=== PATIENT | female | born 1990 | race Caucasian/White ===

== ENCOUNTER 2024-01-19 04:51 | Emergency (ER) | payer SELFPAY ==
[~2024-01-19] VITALS: Ht 170.2 cm; Wt 82.1 kg
[2024-01-19 05:13] VITALS: BP 122/74; PULSE 60; RESP 16; TEMP 98.6; O2SAT 99
[2024-01-19] MEDS: ONDANSETRON 4 MG/2 ML VIAL IVP ONE (05:20)
[2024-01-19] MEDS: diphenhydrAMINE 50 MG/ML VIAL IVP ONE (05:25)
[2024-01-19] MEDS: METOCLOPRAMIDE 10 MG/2 ML INJ VIAL IVP ONE (05:28)
[2024-01-19 05:30] LABS: BILIRUBIN,URINE NEGATIVE (NEGATIVE); BLOOD, URINE TRACE-I (NEGATIVE); COLOR,URINE YELLOW (YELLOW); LEUKOCYTE ESTERASE ,URINE NEGATIVE (NEGATIVE); NITRITE, URINE NEGATIVE (NEGATIVE); PROTEIN,URINE TRACE (NEGATIVE); UGLUCOSE NEGATIVE (NEGATIVE); UROBILINOGEN,URINE 0.2 EU/dL (0.2 - 1)
[2024-01-19 05:31] LABS: APPEARANCE,URINE SLIGHTLY HAZY (CLEAR)
[2024-01-19] MEDS: NACL 0.9% 1,000 ML IV SCH (05:32)
[2024-01-19 05:34] LABS: BACTERIA,URINE 1+ /HPF (None Seen); MUCUS,URINE None Seen /LPF (None Seen); RBC,URINE 0-5 /HPF (0-5); SQUAMOUS EPITHELIAL CELL,UR 0-3 (FEW) /LPF (0-3 (FEW)); WBC,URINE 0-5 /HPF (0-5)
[2024-01-19 05:38] LABS: AMPHETAMINE, URINE POSITIVE ng/ml (NEG <=1000); BARBITURATE, URINE NEGATIVE ng/ml (NEG <=200); BENZODIAZEPINE, URINE NEGATIVE ng/mL (NEG <=200); COCAINE, URINE NEGATIVE ng/mL (NEG <=300)
[2024-01-19 05:39] LABS: CANNABINOID, URINE POSITIVE ng/mL (NEG <=50); OPIATE, URINE NEGATIVE ng/mL (NEG <=2000); PHENCYCLIDINE SCREEN,URINE NEGATIVE ng/mL (NEG <=25)
[2024-01-19 05:57] VITALS: O2SAT 98
[2024-01-19 06:47] LABS: BASOPHILS % (AUTO) 0.5 % (0.0-2.0); HEMATOCRIT 44.5 % (36-48); HEMOGLOBIN 15.2 g/dL (12.0-16.0); LYMPHOCYTES # (AUTO) 1.2 K/uL (2.5-16.5); LYMPHOCYTES % (AUTO) 14.6 % (20.5-51.1); MEAN CORPUSCULAR HEMOGLOBIN 32 pg (27-31); MEAN CORPUSCULAR HGB CONC 34 g/dL (33-37); MEAN CORPUSCULAR VOLUME 93.4 fL (80-94); MONOCYTES # (AUTO) 0.1 K/uL (0.8-1.0); MONOCYTES % (AUTO) 1.7 % (1.7-9.3); NEUTROPHILS # (AUTO) 6.6 K/uL (1.8-7.7); NEUTROPHILS % (AUTO) 83.2 % (42.2-75.2); PLATELET COUNT (AUTO) 358 K/uL (140-450); RED BLOOD CELL COUNT(AUTO) 4.76 MIL/uL (4.20-5.40); RED CELL DISTRIBUTION WIDTH 12.8 % (11.6-13.7); WHITE BLOOD COUNT (AUTO) 7.9 K/uL (4.8-10.8)
[2024-01-19 07:02] LABS: ANION GAP 22.4 (8-16); CALCIUM 10.1 mg/dL (8.5-10.1); CARBON DIOXIDE 20.3 mmol/L (21-32); CREATININE 1.2 mg/dL (0.6-1.3); POTASSIUM 3.7 mmol/L (3.5-5.1)
[2024-01-19 07:07] LABS: ALBUMIN 4.7 g/dL (3.4-5.0); BILIRUBIN,DIRECT 0.1 mg/dL (0.0-0.3); TOTAL BILIRUBIN 0.7 mg/dL (0.0-1.0); TOTAL PROTEIN, SERUM 9.2 g/dL (6.4-8.2)
[2024-01-19] MEDS ORDERED: ONDA-188 SL (07:19)
[2024-01-19 07:40] VITALS: BP 122/74; PULSE 60; RESP 16; TEMP 98.6; O2SAT 98
[2024-01-20] MEDS ORDERED: PHE25S RC (12:15)
[2024-01-20] MEDS ORDERED: LORA-476 PO (12:15)
[2024-01-24] MEDS ORDERED: METO-485 PO (00:26)
== END 2024-01-19 07:40 | disposition home or self-care (01) ==
LOC: MED 04:51
DX: R11.2 Nausea with vomiting, unspecified (principal); R10.13 Epigastric pain; R51.9 Headache, unspecified; E86.0 Dehydration; T50.995A Adverse effect of other drugs, medicaments and biological substances, initial encounter; Y92.89 Other specified places as the place of occurrence of the external cause; Z79.899 Other long term (current) drug therapy
CPT/HCPCS: 36415; 80048; 80076; 80305; 81001; 81025; 83690; 85025; 96361; 96374; 96375; 99284; J1200; J2405; J2765; J7030

== ENCOUNTER 2024-01-20 11:02 | Emergency (ER) | payer SELFPAY ==
[~2024-01-20] VITALS: Ht 172.7 cm; Wt 83.1 kg
[~2024-01-20 11:02] MED LIST: ONDA-188 SL
[2024-01-20 11:12] VITALS: BP 110/65; PULSE 63; RESP 22; TEMP 97.7; O2SAT 99
[2024-01-20 11:22] VITALS: O2SAT 99
[2024-01-20] MEDS: METOCLOPRAMIDE 10 MG/2 ML INJ VIAL IM ONE (11:40)
[2024-01-20] MEDS: diphenhydrAMINE 50 MG/ML VIAL IM ONE (11:40)
[2024-01-20] MEDS ORDERED: PHE25S RC (12:15)
[2024-01-20] MEDS ORDERED: LORA-476 PO (12:15)
[2024-01-24] MEDS ORDERED: METO-485 PO (00:26)
== END 2024-01-20 12:37 | disposition home or self-care (01) ==
LOC: MED 11:02
DX: R11.2 Nausea with vomiting, unspecified (principal); T50.995A Adverse effect of other drugs, medicaments and biological substances, initial encounter; Z79.899 Other long term (current) drug therapy; Y92.89 Other specified places as the place of occurrence of the external cause
CPT/HCPCS: 96372; 99284; J1200; J2765